=== PATIENT | male | born 1960 | race Asian ===

== ENCOUNTER 2020-11-24 23:41 | Inpatient (IN) | payer MEDICAID ==
[~2020-11-24] VITALS: Ht 167.6 cm; Wt 68.0 kg
[2020-11-25] VITALS (41 sets, daily range): BP systolic 89–142; BP diastolic 55–116
--- NOTE | 2020-11-25 | Emergency Room Report ---
History of Present Illness General Chief Complaint: Chest Pain Source: Patient Present Illness HPI This is a 60-year-old male who is Icelandic speaking. He has history of irregular heartbeat. He said that he supposed to get some type of procedure done at [facility] but was told that they need to get his heart better. He does not know what medication he is supposed to be on. He does not know if he is on blood thinner. He ran out of medication 3 days ago. He presents with chief complaint of shortness of breath and palpitation. He has been having these symptoms for 2 months now. Got worse tonight. Came on suddenly. He complained of fast heartbeat with chest pressure and shortness of breath. Onset for 1-2 days. No exertional component. No fever or chills. Negative Covid testing at [facility] 3 weeks ago. No radiation of his chest pain. Nothing made it better. Nothing made it worse. Allergies: Coded Allergies: No Known Allergies (Unverified , 11/24/20) COVID-19 Screening Contact w/high risk pt: No Experienced COVID-19 symptoms?: Yes COVID-19 Testing performed GREASER HELPER: No COVID-19 Screening: Negative COVID-19 COVID-19 Testing Source: Outside [facility] 3 weeks ago Patient History Past Medical History: see triage record, old chart reviewed Past Surgical History: none Pertinent Family History: none Social History: Denies: smoking Immunizations: other Reviewed Nursing Documentation: PMH: Agreed; PSxH: Agreed Nursing Documentation-PMH Hx Cardiac Problems: Yes Hx Hypertension: Yes Review of Systems Eye: Denies: eye pain, blurred vision ENT: Denies: ear pain, nose congestion, throat swelling Respiratory: Reports: shortness of breath; Denies: cough Cardiovascular: Reports: chest pain, palpitations Gastrointestinal: Denies: abdominal pain, diarrhea, nausea, vomiting Musculoskeletal: Denies: back pain, joint pain Skin: Denies: rash Neurological: Denies: headache, numbness Endocrine: Denies: increased thirst, increased urine Hematologic/Lymphatic: Denies: easy bruising All Other Systems: negative except mentioned in HPI Physical Exam Vital Signs Date Time Temp Pulse Resp B/P (MAP) Pulse Ox O2 Delivery O2 Flow Rate FiO2 11/24/20 23:35 97.9 140 22 142/100 (114) 98 Room Air Vitals with tachycardia Sp02 EP Interpretation: reviewed, normal General Appearance: well appearing, no apparent distress, alert Head: normocephalic, atraumatic Eyes: bilateral eye PERRL, bilateral eye EOMI ENT: hearing grossly normal, normal pharynx Neck: full range of motion, supple, no meningismus Respiratory: chest non-tender, lungs clear, normal breath sounds Cardiovascular #1: regular rate, rhythm, no murmur Gastrointestinal: normal bowel sounds, non tender, no mass, no organomegaly, no bruit, non-distended Musculoskeletal: back normal, normal range of motion, gait/station normal Psychiatric: mood/affect normal Procedures Critical Care Time Critical Care Time Critical care is mandated in this patient who presented with rapid A. fib and NSTEMI. Patient require my urgent intervention to attenuate the risks of metabolic collapse which may lead to cardiovascular collapse and . Critical care time is 35 minutes excluding any reportable procedure. Critical care time included evaluation, multiple reevaluation, looking at old charts, interpreting laboratory and diagnostic data, discussing case with patient and family and consultants, and charting. Medical Decision Making Diagnostic Impression: Primary Impression: Rapid atrial fibrillation Additional Impressions: NSTEMI, initial episode of care Acute exacerbation of CHF (congestive heart failure) Qualified Codes: I50.9 - Heart failure, unspecified Renal insufficiency ER Course This patient presents with shortness of breath and chest pain/chest pressure. He was in rapid A. fib and chest x-ray show CHF. His troponin is also elevated. His EKG showed no evidence of STEMI. He was admitted to [facility] in September for the same thing. Has troponin was elevated then also. It was 0.77. Chest x-ray showed CHF. Patient was diuresed and rate control and was discharged home with prescription for Plavix, Eliquis and aspirin. It does not appear that patient is taking his medication. He never had follow-up. He is supposed to get outpatient angiogram. Patient received Cardizem boluses here for rate control. He also received aspirin and Lovenox here. I contacted Dr. Nation for admission. EKG Diagnostic Results Troponin ordered: Yes Rate: tachycardiac Rhythm: other - afib with rvr Rhythm Strip Diag. Results EP Interpretation: yes Rate: 100 Rhythm: no PVC's, no ectopy, other - A. fib Chest X-Ray Diagnostic Results Chest X-Ray Diagnostic Results : Chest X-Ray Ordered: Yes # of Views/Limited/Complete: 1 View Indication: Chest Pain EP Interpretation: Yes Interpretation: no consolidation, no pneumothorax, other - Cardiomegaly with vascular congestion Impression: Other - CM with chf Electronically Signed by: Marek Alonzo MD Last Vital Signs Date Time Temp Pulse Resp B/P (MAP) Pulse Ox O2 Delivery O2 Flow Rate FiO2 11/24/20 23:35 97.9 140 22 142/100 (114) 98 Room Air Status: improved Disposition: ADMITTED INPATIENT Condition: Serious Scripts Unable to Obtain Active Prescriptions or Reported Meds Marek Alonzo MD Nov 25, 2020 00:00
--- NOTE | 2020-11-25 00:10 | NUR ---
ED Nurse Note: Pt brought in by ambulance RA 29. He is axox4, can move all 4 extremities, speaks in complete sentances. On assement he is tachypenic. he is also in rapid afib HR of 160's. Pt is pale and co of chest pain and general body aches, ekg at bedside, 2nd IV line placed, ER MD at bedside. Per pt he was sitting at home and suddenly felt like he had a fever and body pains. he is currently resting eyes closed, vitals are stable on RA>
[2020-11-25] MEDS ORDERED: dilTIAZem HCl 25mg/5ml Inj IVP ONE ×2 (00:15)
--- NOTE | 2020-11-25 00:15 | NUR ---
Spoke to Job RN at [facility] to fax over medical records
[2020-11-25 00:24] LABS: BASOPHILS % (AUTO) 3.1 % (0.0-2.0); EOSINOPHILS % (AUTO) 0.8 % (0.0-3.0); HEMATOCRIT 47.4 % (42.0-52.0); HEMOGLOBIN 15.6 G/DL (14.2-18.0); LYMPHOCYTES % (AUTO) 19.9 % (20.0-45.0); MEAN CORPUSCULAR VOLUME 98 FL (80-99); MONOCYTES % (AUTO) 14.3 % (1.0-10.0); NEUTROPHILS % (AUTO) 61.9 % (45.0-75.0); PLATELET COUNT 209 K/UL (150-450); RED BLOOD COUNT 4.85 M/UL (4.70-6.10); RED CELL DISTRIBUTION WIDTH 16.6 % (11.6-14.8); WHITE BLOOD COUNT 5.3 K/UL (4.8-10.8)
[2020-11-25 00:31] LABS: CALCIUM 9.9 MG/DL (8.5-10.1); CREATININE 1.6 MG/DL (0.55-1.30); POTASSIUM 4.5 MMOL/L (3.5-5.1)
[2020-11-25 00:33] LABS: INR 1.3 (0.9-1.1)
[2020-11-25] MEDS ORDERED: Acetaminophen 500mg (ES) tab ORAL ONE ×2 (00:33→00:45)
[2020-11-25 00:42] LABS: ALBUMIN 3.8 G/DL (3.4-5.0); ALBUMIN/GLOBULIN RATIO 1.1 (1.0-2.7); BILIRUBIN,TOTAL 2.2 MG/DL (0.2-1.0)
[2020-11-25 00:45] LABS: BILIRUBIN,DIRECT 0.8 MG/DL (0.0-0.3)
[2020-11-25] MEDS ORDERED: Enoxaparin 80mg Inj SUBQ ONE (01:00)
[2020-11-25] MEDS ORDERED: Aspirin Baby 81mg ORAL ONE (01:00)
[2020-11-25] MEDS ORDERED: Atenolol 25mg tab ORAL ONE (01:15)
[2020-11-25 01:21] LABS: APPEARANCE,URINE CLEAR; BILIRUBIN, URINE NEGATIVE (NEGATIVE); GLUCOSE, URINE (UA) NEGATIVE (NEGATIVE); KETONES,URINE NEGATIVE (NEGATIVE); LEUKOCYTE ESTERASE ,URINE NEGATIVE (NEGATIVE); NITRITE,URINE NEGATIVE (NEGATIVE); PH,URINE 5 (4.5-8.0); PROTEIN,URINE 2+ (NEGATIVE); UROBILINOGEN,URINE NORMAL MG/DL (0.0-1.0)
[2020-11-25 01:24] LABS: COLOR,URINE YELLOW
--- NOTE | 2020-11-25 01:56 | NUR ---
ED Nurse Note: pt is resting with eyes closed, pt states he feels like he can breathe well SPO2 99%. Placed on low flow for comfort.
--- NOTE | 2020-11-25 02:02 | NUR ---
ED Nurse Note: Report given to Loree HERNÁNDEZ on tele -
--- NOTE | 2020-11-25 02:20 | NUR ---
TRANSFER TO FLOOR: Patient transferred to as ordered, per ER MD. Report given to Loree HERNÁNDEZ 202-2. Belongings sent with pt. Pt placed on tele monitor. RN and zoning technician transfered to the floor with the pt.
--- NOTE | 2020-11-25 02:55 | NUR ---
NURSE NOTES: Received patient from 2ED personnel. On 3L oxygen per nasal cannula. Noted to be tachypneic and unable to lay flat on the bed. Had one episode of dark emesis upon arrival at the unit. 2 IV sites noted. Patient is ambulatory, but unsteady. Needs staff member assist and supervision. Reminded patient to just use the urinal for now to decrease oxygen demand. Currently, sitting up at the edge of the bed. Called and left a message with primary MD for admission orders. Awaiting call back.
--- NOTE | 2020-11-25 03:26 | NUR ---
NURSE NOTES: Called and left a message with both Dr. Nation and Dr. Roth for admission orders. Awaiting call back. Patient seen sitting at the edge of the bed, unable to lay flat. Already on 3l oxygen per nasal cannula, still with shortness of breath and tachypneic.
--- NOTE | 2020-11-25 03:30 | NUR ---
NURSE NOTES: Called nursing costuming supervisor regarding admission orders.
[2020-11-25] MEDS ORDERED: Nitroglycerin Subl 0.4mg tab SL PRN (03:45)
--- NOTE | 2020-11-25 04:07 | NUR ---
NURSE NOTES: Received order to transfer patient to ICU per Ira. Informed nursing powdered sugar supervisor. Awaiting bed.
[2020-11-25] MEDS ORDERED: Metoprolol Tartrate 5mg/5ml Inj IVP SCH ×2 (04:15→05:15)
[2020-11-25] MEDS ORDERED: Nitroglycerin 50mg/250ml btl 250 ML IV ONE (04:38)
--- NOTE | 2020-11-25 04:40 | NUR ---
NURSE NOTES: received from telemetry with severe chest pain substernal, scale of 10, cold to touch, initial temp 92.7F, joanie hugger put on, manager cardiac cath shows controlled afib with hr 90's/min, bp 142/116, on simple mask 8L with o2 sat 100%,has peripheral iv line to left hand and left ac, sites good, asymptomatic
--- NOTE | 2020-11-25 05:00 | NUR ---
NURSE NOTES: nitroglycerin drip at 5mcg/min bp 117/55, lasix 40 mg ivp and metoprolol 5 mg ivp not administerd at this time, given in re and 2east
--- NOTE | 2020-11-25 05:12 | NUR ---
TRANSFER TO FLOOR: Patient transferred to [facility], per Dr. Roth. Belongings and report given to BETTY Hamilton. Endorsed administration of metoprolol IV prior to transfer.
--- NOTE | 2020-11-25 05:15 | NUR ---
NURSE NOTES: still complaining of severe chest pain, ntg drip increased to 10mcg/min
--- NOTE | 2020-11-25 05:30 | NUR ---
NURSE NOTES: stated feeling better now and more calm as well
[2020-11-25] MEDS: Nitroglycerin 50mg/250ml btl 250 ML IV SCH (05:38)
--- NOTE | 2020-11-25 06:30 | NUR ---
NURSE NOTES: o2 changed from simple mask to nasal cannula at 3l, o2 sat remains 99-100%
--- NOTE | 2020-11-25 06:39 | NUR ---
NURSE NOTES: dr jimenez made aware of last troponin of 1.113 and also notified him that the lasix 40mg and metoprolol 5mg ivp that he ordered at 0500 not given because they were given in other unit
--- NOTE | 2020-11-25 07:27 | NUR ---
NURSE HAND-OFF REPORT: Latest Vital Signs: Temperature 94.0 , Pulse 73 , B/P 97 /75 , Respiratory Rate 30 , O2 SAT 100 , Nasal Cannula, O2 Flow Rate 8.0 . Vital Sign Comment: EKG Rhythm: Atrial Fibrillation Rhythm change?: N MD Notified?: dr jimenez for 1. MD Response: no new order Latest Crews Fall Score: 45 Fall Risk: High Risk Safety Measures: Call light Within Reach, Bed Alarm Zone 1, Side Rails Side Rails x2, Bed position Low and Locked. Fall Precautions: Yellow Socks Yellow Gown Door Sign Patient Fall Education Report given to alyson nunez rn.
--- NOTE | 2020-11-25 07:28 | NUR ---
NURSE NOTES: Report received from BETTY Hamilton. Patient is sleeping in bed. Mainly Romansh speaking. Oriented x4. Afebrile. 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 Patient complaints of mild pain radiating to back and mild dizziness. Will continue to monitor. On N/C 3L. O2 sat is 100%. RR 20's. Tachy shallow breathing noted. Urinal at bedside. Pitting edema +1 on bilateral lower extremities and feet noted. IV to left hand G22 and left AC G20 patent and asymptomatic. Patient is on Nitro drip at 10mcg/min. Bed in lowest position. Side rails up x3. Will resume plan of care.
--- NOTE | 2020-11-25 07:39 | NUR ---
CASE MANAGEMENT:REVIEW 60 YR OLD MALE BIBA FROM HOME CC: INCREASING SOB, CHEST PAIN AND BODY ACHES SI: NSTEMI. RAPID AFIB. AC/CHR CHF 97.8 165 22 142/100 98% ON RA BUN+20 CR+1.6 TROPONIN(+) 1.100 IS: IV CARDIZEM X2 IV LASIX ASA PO TYLENOL PO LOVENOX SQ NOVEL COVID CXR EKG : TO ICU DCP: FROM HOME PLAN: NITRO GTT VENOUS DUPLEX 2DECHO
--- NOTE | 2020-11-25 08:20 | NUR ---
NURSE NOTES: 2Decho is being done at bedside.
[2020-11-25] MEDS ORDERED: Eliquis 5mg tablet ORAL SCH (09:00)
[2020-11-25] MEDS ORDERED: Heparin 5000 units/ml inj SUBQ SCH (09:00)
[2020-11-25] MEDS: Aspirin Baby 81mg NG SCH (09:03)
--- NOTE | 2020-11-25 09:24 | NUR ---
NURSE NOTES: Venous duplex is being done at bedside. Patient vomited small amount brown emesis. Called and left a message to Dr Nation regarding vomiting. Awaiting call back for new orders.
[2020-11-25] MEDS: Eliquis 2.5mg tablet ORAL SCH ×2 (10:40→20:18)
--- NOTE | 2020-11-25 11:06 | NUR ---
NURSE NOTES: Administered Edulis late because patient vomited earlier. Dr Roth was here to see the patient. Order to give extra 20mg IVP received, noted, and carried out.
--- NOTE | 2020-11-25 13:07 | NUR ---
NURSE NOTES: Assisted patient to stand up and void into urinal at bedside. Voided 400cc yellow urine. Assisted patient back to bed.
--- NOTE | 2020-11-25 13:30 | Diagnostic Imaging Report ---
Indication: Shortness of breath, chest pain, lower extremity edema Technique: Grayscale and duplex images of the bilateral lower extremity veins Comparison: None Findings: Bilaterally, grayscale and duplex images demonstrate no evidence of intraluminal thrombus. Normal phasic Doppler waveforms, demonstrating normal augmentation response and no evidence of valvular insufficiency. Greater saphenous vein(s) and tibial veins are patent. Normal compressibility. Impression: Negative for evidence of lower extremity deep venous thrombosis bilaterally
[2020-11-25 13:33] LABS: ALANINE AMINOTRANSFERASE 91 U/L (12-78); ALBUMIN 3.2 G/DL (3.4-5.0); ALBUMIN/GLOBULIN RATIO 1.1 (1.0-2.7); ALKALINE PHOSPHATASE 74 U/L (46-116); ASPARTATE AMINO TRANSFERASE 129 U/L (15-37); BILIRUBIN,TOTAL 2.3 MG/DL (0.2-1.0); BLOOD UREA NITROGEN 26 mg/dL (7-18); CALCIUM 8.9 MG/DL (8.5-10.1); CARBON DIOXIDE 22 MMOL/L (21-32); CHOLESTEROL 124 MG/DL (< 200); CREATININE 1.8 MG/DL (0.55-1.30); HDL CHOLESTEROL 33 MG/DL (40-60); TRIGLYCERIDES 57 MG/DL (30-150)
[2020-11-25 14:08] LABS: CHLORIDE 105 MMOL/L (98-107); POTASSIUM 5.2 MMOL/L (3.5-5.1); SODIUM 137 MMOL/L (136-145)
[2020-11-25 14:09] LABS: BILIRUBIN,DIRECT 1.1 MG/DL (0.0-0.3)
--- NOTE | 2020-11-25 14:11 | NUR ---
CLAM SHOVEL OPERATOR NOTE SW met w/ pt and completed the psychosocial assessment. PT presents as A&O 4x. Pt resides alone at [address] [place] [id number]. Pt is and has one adult daughter. PT reports he is estranged to his family and he is not in contact w/ any family. Pt is currently unemployed, receiving unemployment benefit. 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 Pt reports he is ambulatory w/o DME and independent w/ ADLs. Pt does not have AD/POA. Pt uses tobacco and drinks ETOH, 2-3x/week. PT reports he will consider IP or OP rehab program options in near future when his health gets better. SW provided the substance abuse rehab resource. Pt does not have social worker assistant concern at this time. SW to F/U as needed.
--- NOTE | 2020-11-25 14:23 | Diagnostic Imaging Report ---
Indication: Shortness of breath Technique: One view of the chest Comparison: none Findings: The heart is enlarged. There is bilateral interstitial and airspace edema. There may be a small right pleural effusion Impression: Cardiomegaly Small right pleural effusion
--- NOTE | 2020-11-25 15:42 | NUR ---
NURSE NOTES: Notified Dr Roth regarding elevated K 5.2 and that patient urinated after additional Lasix 20mg IVP. No new orders.
--- NOTE | 2020-11-25 17:50 | NUR ---
NURSE NOTES: Patient had 60% of dinner in bed and has oral care done by himself. Patient sit up at the edge of the bed, watching TV. Fall risk education given and call light within reach. Patient denies chest pain at this time.
--- NOTE | 2020-11-25 20:00 | NUR ---
NURSE NOTES: Report received from BETTY Mercedes. Upon assessment pt is getting up to go to bedside commode. EKG shows Afib 110 BPM. Saturating 100% on 2L n/c. Left hand IV patent and intact running Nitro 10 mcg/hr. Blood observed around penis area for attempting to remove burnette. Burnette draining well to gravity. Bed kept in lowest and locked position. Bed alarm on, side rails up x2. Call light within reach. Will continue monitoring.
[2020-11-25] MEDS: Metoprolol Tartrate 50mg tab ORAL SCH (20:18)
--- NOTE | 2020-11-25 21:57 | NUR ---
NURSE NOTES: Pt appears restless and unable to sleep. When asked if he is in pain, "0/10 pain. Patient requesting sleeping pill x2. Left message for MD with request. Explained to pt that he will be NPO at midnight.
--- NOTE | 2020-11-25 23:00 | NUR ---
NURSE NOTES: Pt observed sitting on side of bed. 0/10 pain per patient. Still awaiting orders for PRN. Vitals WNL.
[2020-11-26] VITALS (31 sets, daily range): BP systolic 88–128; BP diastolic 57–101
--- NOTE | 2020-11-26 03:23 | NUR ---
NURSE NOTES: Pt appears to be resting in bed. HR has decreased to 80's. BP stable. Tachypneic at 33 RR. Will monitor.
--- NOTE | 2020-11-26 04:00 | NUR ---
NURSE NOTES: Pt refused bed bath. Reminded pt to keep Oxygen N/C on. Left message for Dr. Frazier in regards to cancelled Ab U/S and NPO status. Will monitor.
[2020-11-26] MEDS ORDERED: Nitroglycerin 2% oint pkt TOPIC ONE (04:20)
[2020-11-26 05:04] LABS: BASOPHILS % (AUTO) 1.9 % (0.0-2.0); EOSINOPHILS % (AUTO) 1.7 % (0.0-3.0); HEMATOCRIT 44.6 % (42.0-52.0); HEMOGLOBIN 14.5 G/DL (14.2-18.0); LYMPHOCYTES % (AUTO) 28.7 % (20.0-45.0); MEAN CORPUSCULAR VOLUME 98 FL (80-99); MONOCYTES % (AUTO) 11.5 % (1.0-10.0); NEUTROPHILS % (AUTO) 56.2 % (45.0-75.0); PLATELET COUNT 185 K/UL (150-450); RED BLOOD COUNT 4.55 M/UL (4.70-6.10); RED CELL DISTRIBUTION WIDTH 16.8 % (11.6-14.8); WHITE BLOOD COUNT 7.8 K/UL (4.8-10.8)
[2020-11-26 05:12] LABS: INR 1.4 (0.9-1.1)
[2020-11-26] MEDS: Nitroglycerin 2% oint pkt TOPIC SCH ×3 (05:34→17:27)
[2020-11-26] MEDS: Nitroglycerin 50mg/250ml btl 250 ML IV SCH (05:37)
[2020-11-26 05:49] LABS: ALANINE AMINOTRANSFERASE 138 U/L (12-78); ALBUMIN 3.2 G/DL (3.4-5.0); ALBUMIN/GLOBULIN RATIO 1.1 (1.0-2.7); ALKALINE PHOSPHATASE 73 U/L (46-116); AMYLASE 32 U/L (25-115); ANION GAP 12 mmol/L (5-15); ASPARTATE AMINO TRANSFERASE 171 U/L (15-37); BILIRUBIN,TOTAL 1.6 MG/DL (0.2-1.0); BLOOD UREA NITROGEN 30 mg/dL (7-18); CALCIUM 9.4 MG/DL (8.5-10.1); CARBON DIOXIDE 20 MMOL/L (21-32); CHLORIDE 104 MMOL/L (98-107); CREATININE 1.9 MG/DL (0.55-1.30); POTASSIUM 4.6 MMOL/L (3.5-5.1); SODIUM 136 MMOL/L (136-145)
[2020-11-26 05:51] LABS: BILIRUBIN,DIRECT 0.8 MG/DL (0.0-0.3)
--- NOTE | 2020-11-26 07:12 | NUR ---
NURSE HAND-OFF REPORT: Important Events on Shift: Ab U/S Patient Status: Afib Diet: NPO Pending Orders: Y Pending Results/Labs:Y Pending MD notification: Latest Vital Signs: Temperature 97.8 , Pulse 109 , B/P 108 /68 , Respiratory Rate 20 , O2 SAT 98 , Nasal Cannula, O2 Flow Rate 3.0 . Vital Sign Comment: EKG Rhythm: Atrial Fibrillation Rhythm change?: N MD Notified?: - MD Response: Latest Crews Fall Score: 45 Fall Risk: High Risk Safety Measures: Call light Within Reach, Bed Alarm Zone 1, Side Rails Side Rails x3, Bed position Low and Locked. Fall Precautions: Yellow Socks Yellow Gown Report given to BETTY Lindsey.
--- NOTE | 2020-11-26 07:13 | NUR ---
NURSE NOTES: Patient recieved this AM from BETTY Menon. He is AOx4, resp well on RA (NC observed off of patient's nose), no ss of anxiety, denies pain at start of shift. Patient is AFIB on tele, urinal and BSC at bedside, he has been NPO since [facility] for US ABD this shift. VSS, afebrile. IV site to the RAC has NTG infusing at 10 mcg/min. Edema to the BLE improved, no longer pitting, observed to be slightly tight. Patient is Faroese-speaking, PUI for COVID isolation. Call light and bedside table within reach, bed in the lowest position, with bed alarm armed. Will con't with the plan of care.
--- NOTE | 2020-11-26 09:09 | NUR ---
NURSE NOTES: Notified Dr Roth regarding elevated Troponin result. No new orders for now.
--- NOTE | 2020-11-26 09:50 | NUR ---
NURSE NOTES: Dr. Frazier at bedside for morning rounds, patient assessed at bedside. Patient had c/o abdominal pain upon palpation of the LUQ; US tech en route to unit for US ABD. Will con't to monitor.
--- NOTE | 2020-11-26 10:15 | NUR ---
NURSE NOTES: Jess Atkins at bedside performing examination. Morning meds to be administered post-exam.
[2020-11-26] MEDS: Aspirin Baby 81mg NG SCH (11:14)
[2020-11-26] MEDS: Eliquis 2.5mg tablet ORAL SCH ×2 (11:15→21:02)
[2020-11-26] MEDS: Metoprolol Tartrate 50mg tab ORAL SCH ×2 (11:16→21:00)
--- NOTE | 2020-11-26 11:26 | Diagnostic Imaging Report ---
EXAM: ULTRASOUND US ABD Complete CLINICAL HISTORY: Abdominal pain. Abnormal labs. COMPARISON: None TECHNIQUE: Ultrasound examination of the abdomen includes grayscale images, and color and spectral doppler analysis. FINDINGS: The liver and spleen are homogeneous. The gallbladder is without sludge or stone. Common bile duct measures 5 mm. The pancreas is unremarkable to the extent visualized. The kidneys are normal in size, shape and axis. The mid to distal aorta and cava are obscured. Incidental bilateral pleural effusions noted. IMPRESSION: NO SIGN OF ACUTE DISEASE IN THE UPPER ABDOMEN TO THE EXTENT VISUALIZED. INCIDENTAL BILATERAL PLEURAL EFFUSIONS.
[2020-11-26] MEDS ORDERED: Lisinopril 10mg tab ORAL SCH (12:00)
--- NOTE | 2020-11-26 12:00 | NUR ---
NURSE NOTES: Dr Roth here to see the patient. Updated him regarding patient's current condition. Will see orders in [facility] and carry out. Will resume diet as ordered since abdominal US is done.
--- NOTE | 2020-11-26 12:07 | NUR ---
CASE MANAGEMENT:REVIEW 11/26/20 SI: NSTEMI. RAPID AFIB. AC/CHR CHF 97.8 107 21 92/69 96% ON 3L/NC BUN+30 CR+1.9 TROPONIN(+) 0.951 BNP+5251 IS: LISINOPRIL PO QD NITRO BID 1" TID LOPRESSOR PO BID ELIQUIS PO Q12 PEPCID PO QD ASA PO QD : ICU STATUS DCP: FROM HOME PLAN: DOWNGRADE TO TELEMETRY
--- NOTE | 2020-11-26 14:43 | NUR ---
NURSE NOTES: Dr Elder is aware of abd US result. Patient is voiding independently to urinal. Patient is resting in bed. Denies pain or discomfort at this time.
--- NOTE | 2020-11-26 14:45 | Consultation ---
Consult Note Consult Note I am asked to evaluate the patient at the request of Dr. Roth for renal failure Patient seen in ICU room J Discussed with RN Wicho This is a 60-year-old male who is Latvian speaking. He has history of irregular heartbeat. He said that he supposed to get some type of procedure done at [facility] but was told that they need to get his heart better. He does not know what medication he is supposed to be on. He does not know if he is on blood thinner. He ran out of medication 3 days ago. He presents with chief complaint of shortness of breath and palpitation. He has been having these symptoms for 2 months now. Got worse tonight. Came on suddenly. He complained of fast heartbeat with chest pressure and shortness of breath. Onset for 1-2 days. No exertional component. No fever or chills. Negative Covid testing at [facility] 3 weeks ago. No radiation of his chest pain. Nothing made it better. Nothing made it worse. Allergies: No Known Allergies (Unverified , 11/24/20) COVID-19 Screening Contact w/high risk pt: No Experienced COVID-19 symptoms?: Yes COVID-19 Testing performed PATIENT CARE: No COVID-19 Screening: Negative COVID-19 COVID-19 Testing Source: Outside [facility] 3 weeks ago Hx Cardiac Problems: Yes Hx Hypertension: Yes Vital Signs Date Time Temp Pulse Resp B/P (MAP) Pulse Ox O2 Delivery O2 Flow Rate FiO2 11/24/20 23:35 97.9 140 22 142/100 (114) 98 Room Air Vitals with tachycardia Chest x-ray the heart is enlarged. There is bilateral interstitial and airspace edema. There may be a small right pleural effusion Ultrasound:The kidneys are normal in size, shape and axis. HEENT: normal ENT inspection RHYTHM: Afib LUNGS: rales bilaterally CARDIAC: irregularly irregular, systolic murmur - 2/6 holosystolic at apex, rapid rate ABDOMEN: normal bowel sounds, non tender, soft EXTREMITIES: trace edema, pitting edema Laboratory Tests Test 11/26/20 04:00 White Blood Count 7.8 K/UL (4.8-10.8) Red Blood Count 4.55 M/UL (4.70-6.10) L Hemoglobin 14.5 G/DL (14.2-18.0) Hematocrit 44.6 % (42.0-52.0) Mean Corpuscular Volume 98 FL (80-99) Mean Corpuscular Hemoglobin 31.7 PG (27.0-31.0) H Mean Corpuscular Hemoglobin Concent 32.4 G/DL (32.0-36.0) Red Cell Distribution Width 16.8 % (11.6-14.8) H Platelet Count 185 K/UL (150-450) Mean Platelet Volume 9.1 FL (6.5-10.1) Neutrophils (%) (Auto) 56.2 % (45.0-75.0) Lymphocytes (%) (Auto) 28.7 % (20.0-45.0) Monocytes (%) (Auto) 11.5 % (1.0-10.0) H Eosinophils (%) (Auto) 1.7 % (0.0-3.0) Basophils (%) (Auto) 1.9 % (0.0-2.0) Prothrombin Time 15.4 SEC (9.30-11.50) H Prothromb Time International Ratio 1.4 (0.9-1.1) H Activated Partial Thromboplast Time 32 SEC (23-33) Sodium Level 136 MMOL/L (136-145) Potassium Level 4.6 MMOL/L (3.5-5.1) Chloride Level 104 MMOL/L (98-107) Carbon Dioxide Level 20 MMOL/L (21-32) L Anion Gap 12 mmol/L (5-15) Blood Urea Nitrogen 30 mg/dL (7-18) H Creatinine 1.9 MG/DL (0.55-1.30) H Estimat Glomerular Filtration Rate 36.3 mL/min (>60) Glucose Level 104 MG/DL (74-106) Calcium Level 9.4 MG/DL (8.5-10.1) Total Bilirubin 1.6 MG/DL (0.2-1.0) H Direct Bilirubin 0.8 MG/DL (0.0-0.3) H Aspartate Amino Transf (AST/SGOT) 171 U/L (15-37) H Alanine Aminotransferase (ALT/SGPT) 138 U/L (12-78) H Alkaline Phosphatase 73 U/L (46-116) Troponin I 0.951 ng/mL (0.000-0.056) C-Reactive Protein, Quantitative < 0.4 mg/dL (0.00-0.90) Pro-B-Type Natriuretic Peptide 5251 pg/mL (0-125) H Total Protein 6.1 G/DL (6.4-8.2) L Albumin 3.2 G/DL (3.4-5.0) L Globulin 2.9 g/dL Albumin/Globulin Ratio 1.1 (1.0-2.7) Amylase Level 32 U/L (25-115) Lipase 103 U/L (73-393) . . Assessment/Plan 60-year-old Latvian male admitted with creatinine of 1.6 today is 1.9 Has acute renal failure most likely with underlying chronic kidney disease On admission had rapid atrial fibrillation Elevated troponin, non-STEMI Exacerbation of CHF, ejection fraction 40% (cardiomyopathy) Proteinuria 2+ Elevated LFTs Continue monitor renal parameters Medication reviewed Stool softener given 1 dose of IV Lasix Flomax at night Continue to monitor renal parameters Jose Iglesias MD Nov 26, 2020 14:44
--- NOTE | 2020-11-26 15:01 | Consultation ---
History of Present Illness General Date patient seen: Nov 26, 2020 Reason for Hospitalization: Chest Pain Present Illness HPI Is a 60-year-old male admitted to [facility] intensive care unit for irregular heartbeat complaining of chest pain and abdominal pain noted to have abnormal LFTs. Patient seen, patient by, chart reviewed. Patient states generalized abdominal discomfort and on palpation feels discomfort around the epigastric right upper quadrant. T bili elevated LFTs elevated. Tolerating diet. No nausea vomiting. Allergies: Coded Allergies: No Known Allergies (Unverified , 11/24/20) COVID-19 Screening Contact w/high risk pt: No Experienced COVID-19 symptoms?: Yes Coronavirus symptoms experienc: Shortness of Breath Medication History Unable to Obtain Active Prescriptions or Reported Meds Patient History History Provided By: Patient, Medical Record, PMD Healthcare decision maker Resuscitation status Advanced Directive on File Past Medical/Surgical History Past Medical/Surgical History: (1) Renal insufficiency (2) Acute exacerbation of CHF (congestive heart failure) (3) Rapid atrial fibrillation (4) NSTEMI, initial episode of care Review of Systems Review of Symptoms General ROS: no weight loss or fever Psychological ROS: no depression or mood changes, no memory loss Ophthalmic ROS: no visual changes or eye irritation ENT ROS: no nasal congestion, hearing loss, dizziness Allergy and Immunology ROS: no allergic symptoms or urticaria Hematological and Lymphatic ROS: no swollen glands, unusual bleeding or bruising Endocrine ROS: no polyuria, polydipsia, weight changes, temperature intolerance Respiratory ROS: no cough, shortness of breath, or wheezing Cardiovascular ROS: + chest pain or dyspnea on exertion Gastrointestinal ROS: + abdominal pain, bright red blood in stool. Musculoskeletal ROS: no myalgias or arthralgias Neurological ROS: no TIA or stroke symptoms Dermatological ROS: no new or changing skin lesions, rashes or pruritis Physical Exam Physical Exam General appearance: alert, cooperative, no distress, appears stated age Head: Normocephalic, without obvious abnormality, atraumatic Eyes: conjunctivae/corneas clear. PERRL, EOM's intact. Fundi benign Throat: Lips, mucosa, and tongue normal. Teeth and gums normal Neck: supple, symmetrical, trachea midline, no adenopathy, thyroid: not enlarged, symmetric, no tenderness/mass/nodules, no carotid bruit and no JVD Lungs: clear to auscultation bilaterally Heart: regular rate and rhythm, S1, S2 normal, no murmur, click, rub or gallop Abdomen: soft, non-tender but discomfort. Bowel sounds normal. No masses, no organomegaly Extremities: extremities normal, atraumatic, no cyanosis or edema Pulses: 2+ and symmetric Skin: Skin color, texture, turgor normal. No rashes or lesions Neurologic: Grossly normal Last 24 Hour Vital Signs Date Time Temp Pulse Resp B/P (MAP) Pulse Ox O2 Delivery O2 Flow Rate FiO2 11/26/20 14:00 113 31 111/80 (90) 96 11/26/20 13:00 128 22 97 11/26/20 12:45 121/97 11/26/20 12:45 121/97 11/26/20 12:45 112 33 121/97 (105) 98 11/26/20 12:30 112 29 121/97 (105) 99 11/26/20 12:15 114 26 125/86 (99) 99 11/26/20 12:00 117 11/26/20 12:00 97.9 105 20 125/86 (99) 100 11/26/20 12:00 Nasal Cannula 3.0 11/26/20 11:30 122 28 112/93 (99) 100 11/26/20 11:16 101 109/88 11/26/20 11:00 111 29 109/88 (95) 100 11/26/20 10:30 104 19 118/74 (89) 99 11/26/20 10:00 107 22 125/101 (109) 99 11/26/20 09:30 113 21 105/86 (92) 99 11/26/20 09:00 102 17 88/67 (74) 97 11/26/20 08:30 96 18 95/57 (70) 93 11/26/20 08:00 97.9 106 21 92/69 (77) 96 11/26/20 08:00 107 11/26/20 08:00 Nasal Cannula 3.0 11/26/20 07:30 106 20 93/70 (78) 98 11/26/20 07:00 109 20 108/68 (81) 98 11/26/20 07:00 109 20 108/68 (81) 98 11/26/20 06:30 112 25 118/87 (97) 100 11/26/20 06:00 110 21 126/100 (109) 98 11/26/20 05:37 106/89 11/26/20 05:34 106/89 11/26/20 05:30 112 28 106/89 (95) 100 11/26/20 05:00 109 19 114/88 (97) 99 11/26/20 04:30 110 26 107/81 (90) 97 11/26/20 04:00 108 11/26/20 04:00 118 26 113/83 (93) 100 11/26/20 04:00 Nasal Cannula 3.0 11/26/20 03:30 99 20 111/75 (87) 95 11/26/20 03:00 110 32 110/74 (86) 97 11/26/20 02:30 97 17 122/79 (93) 100 11/26/20 02:00 112 23 119/85 (96) 99 11/26/20 01:30 111 30 115/93 (100) 99 11/26/20 01:00 117 20 101/76 (84) 99 11/26/20 00:30 104 20 115/89 (98) 99 11/26/20 00:00 110 11/26/20 00:00 97.8 110 23 109/78 (88) 100 11/26/20 00:00 Nasal Cannula 3.0 11/25/20 23:30 108 21 112/79 (90) 100 11/25/20 23:00 107 25 111/79 (90) 91 11/25/20 22:30 110 18 111/80 (90) 100 11/25/20 22:00 115 32 112/76 (88) 97 11/25/20 21:00 102 26 123/93 (103) 99 11/25/20 21:00 102 11/25/20 20:18 98 109/87 11/25/20 20:00 97.1 107 25 109/87 (94) 98 11/25/20 20:00 Nasal Cannula 3.0 11/25/20 19:00 109 25 99/72 (81) 95 11/25/20 18:30 100 24 104/71 (82) 99 11/25/20 18:00 114 26 108/74 (85) 97 11/25/20 17:30 115 23 113/93 (100) 98 11/25/20 17:00 106 27 99/72 (81) 100 11/25/20 16:30 110 28 106/74 (85) 98 11/25/20 16:00 97.9 102 25 104/77 (86) 96 11/25/20 16:00 Nasal Cannula 3.0 11/25/20 15:30 97 23 103/74 (84) 95 11/25/20 15:25 100 11/25/20 15:00 97 25 117/73 (88) 94 Intake and Output 11/25/20 11/26/20 19:00 07:00 Intake Total 646 ml 180 ml Output Total 610 ml 350 ml Balance 36 ml -170 ml Intake Oral 610 ml 150 ml IV Total 36 ml 30 ml Output Urine Total 580 ml 350 ml Emesis 30 ml # Voids 3 # Bowel Movements 4 Laboratory Tests Test 11/26/20 04:00 White Blood Count 7.8 K/UL (4.8-10.8) Red Blood Count 4.55 M/UL (4.70-6.10) L Hemoglobin 14.5 G/DL (14.2-18.0) Hematocrit 44.6 % (42.0-52.0) Mean Corpuscular Volume 98 FL (80-99) Mean Corpuscular Hemoglobin 31.7 PG (27.0-31.0) H Mean Corpuscular Hemoglobin Concent 32.4 G/DL (32.0-36.0) Red Cell Distribution Width 16.8 % (11.6-14.8) H Platelet Count 185 K/UL (150-450) Mean Platelet Volume 9.1 FL (6.5-10.1) Neutrophils (%) (Auto) 56.2 % (45.0-75.0) Lymphocytes (%) (Auto) 28.7 % (20.0-45.0) Monocytes (%) (Auto) 11.5 % (1.0-10.0) H Eosinophils (%) (Auto) 1.7 % (0.0-3.0) Basophils (%) (Auto) 1.9 % (0.0-2.0) Prothrombin Time 15.4 SEC (9.30-11.50) H Prothromb Time International Ratio 1.4 (0.9-1.1) H Activated Partial Thromboplast Time 32 SEC (23-33) Sodium Level 136 MMOL/L (136-145) Potassium Level 4.6 MMOL/L (3.5-5.1) Chloride Level 104 MMOL/L (98-107) Carbon Dioxide Level 20 MMOL/L (21-32) L Anion Gap 12 mmol/L (5-15) Blood Urea Nitrogen 30 mg/dL (7-18) H Creatinine 1.9 MG/DL (0.55-1.30) H Estimat Glomerular Filtration Rate 36.3 mL/min (>60) Glucose Level 104 MG/DL (74-106) Calcium Level 9.4 MG/DL (8.5-10.1) Total Bilirubin 1.6 MG/DL (0.2-1.0) H Direct Bilirubin 0.8 MG/DL (0.0-0.3) H Aspartate Amino Transf (AST/SGOT) 171 U/L (15-37) H Alanine Aminotransferase (ALT/SGPT) 138 U/L (12-78) H Alkaline Phosphatase 73 U/L (46-116) Troponin I 0.951 ng/mL (0.000-0.056) C-Reactive Protein, Quantitative < 0.4 mg/dL (0.00-0.90) Pro-B-Type Natriuretic Peptide 5251 pg/mL (0-125) H Total Protein 6.1 G/DL (6.4-8.2) L Albumin 3.2 G/DL (3.4-5.0) L Globulin 2.9 g/dL Albumin/Globulin Ratio 1.1 (1.0-2.7) Amylase Level 32 U/L (25-115) Lipase 103 U/L (73-393) Height (Feet): 5 Height (Inches): 6.00 Weight (Pounds): 150 Medications Current Medications Medications (Trade) Dose Ordered Sig/Melva Route PRN Reason Start Time Stop Time Status Last Admin Dose Admin Apixaban (Eliquis) 5 mg EVERY 12 HOURS ORAL 11/25/20 09:13 02/23/21 08:59 11/26/20 11:15 Aspirin (ASA) 81 mg DAILY NG 11/25/20 09:00 01/09/21 08:59 11/26/20 11:14 Docusate Sodium (Colace) 100 mg THREE TIMES A DAY ORAL 11/26/20 18:00 12/26/20 17:59 Famotidine (Pepcid) 20 mg DAILY ORAL 11/25/20 09:00 02/23/21 08:59 11/26/20 11:14 Furosemide (Lasix) 20 mg ONCE IV 11/26/20 15:00 11/26/20 16:00 Lisinopril (ZestriL) 10 mg DAILY ORAL 11/27/20 09:00 12/27/20 08:59 Metoprolol Tartrate (Lopressor) 50 mg BID@0900,2100 ORAL 11/25/20 21:00 02/23/21 08:59 11/26/20 11:16 Nitroglycerin (Nitro-Bid) 1 inch TID@0600,1200,1800 TOPIC 11/26/20 06:00 12/26/20 05:59 11/26/20 12:45 Nitroglycerin (Ntg) 0.4 mg Q5M PRN SL Prn Chest Pain 11/25/20 03:45 12/25/20 03:44 Ondansetron HCl (Zofran) 4 mg Q4H PRN IVP Nausea & Vomiting 11/25/20 10:15 12/25/20 10:14 Tamsulosin HCl (Flomax) 0.4 mg BEDTIME ORAL 11/26/20 21:00 12/26/20 20:59 UNV Assessment/Plan Problem List: (1) Renal insufficiency ICD Codes: N28.9 - Disorder of kidney and ureter, unspecified SNOMED: 509237698, 810721944 (2) Acute exacerbation of CHF (congestive heart failure) ICD Codes: I50.9 - Heart failure, unspecified SNOMED: 787929092, 73809705780566 Qualifiers: Qualified Codes: I50.9 - Heart failure, unspecified (3) Rapid atrial fibrillation ICD Codes: I48.91 - Unspecified atrial fibrillation SNOMED: 938805643 (4) NSTEMI, initial episode of care ICD Codes: I21.4 - Non-ST elevation (NSTEMI) myocardial infarction SNOMED: 52407721 Status Narrative 60-year-old male abdominal pain abnormal LFTs. Ultrasound reviewed sludge no paracolic fluid liver noted Abdominal pain improving since admission LFTs improving okay for diet IV fluids Cardiology input appreciated Thank you will follow recommendations and serial exams The liver and spleen are homogeneous. The gallbladder is without sludge or stone. Common bile duct measures 5 mm. The pancreas is unremarkable to the extent visualized. The kidneys are normal in size, shape and axis. The mid to distal aorta and cava are obscured. Incidental bilateral pleural effusions noted. IMPRESSION: NO SIGN OF ACUTE DISEASE IN THE UPPER ABDOMEN TO THE EXTENT VISUALIZED. INCIDENTAL BILATERAL PLEURAL EFFUSIONS. Gerson Frazier Nov 26, 2020 15:01
--- NOTE | 2020-11-26 16:00 | NUR ---
NURSE NOTES: Patient is resting in bed. Denies chest pain or discomfort at this time. Afebrile. 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
[2020-11-26] MEDS ORDERED: ASPIRIN81 MG ORAL (17:14)
[2020-11-26] MEDS ORDERED: HUMALOG100 UNIT/4 SUBQ (17:14)
[2020-11-26] MEDS ORDERED: FUROSEMIDE80 M1 ORAL (17:14)
[2020-11-26] MEDS: Docusate 100mg cap ORAL SCH (17:26)
--- NOTE | 2020-11-26 17:45 | NUR ---
TRANSFER TO FLOOR: Patient transferred to [facility], . Report given to Renny Villasenor RN. Belongings checked and with the patient and no medications to give. Patient is alert and oriented x4 at this time.
--- NOTE | 2020-11-26 17:49 | NUR ---
NURSE NOTES: Received report from Viridiana Jones RN and Alie Kohli RN. Patient awake and alert, Ukrainian speaking, understands Slovenian, bed in lowest position, call light within reach, oxygen at 2 liters nasal cannula, no c/o pain, in no apparent distress. Belongings on table next to bed.
--- NOTE | 2020-11-26 19:18 | NUR ---
NURSE HAND-OFF REPORT: Important Events on Shift: Patient transferred in to Telemetry from ICU. Patient Status: In no apparent distress. Diet: Cardiac. Pending Orders: N/A Pending Results/Labs:N/A Pending MD notification:N/A Latest Vital Signs: Temperature 97.9 , Pulse 111 , B/P 106 /54 , Respiratory Rate 42 , O2 SAT 99 , Nasal Cannula, O2 Flow Rate 3.0 . Vital Sign Comment: N/A EKG Rhythm: Atrial Fibrillation Rhythm change?: N MD Notified?: - MD Response: Latest Crews Fall Score: 45 Fall Risk: High Risk Safety Measures: Call light Within Reach, Bed Alarm Zone 1, Side Rails Side Rails x3, Bed position Low and Locked. Fall Precautions: Yellow Socks Yellow Gown Report given to Jennifer Wilkins RN.
--- NOTE | 2020-11-26 19:30 | NUR ---
NURSE NOTES: Patient received from BETTY Wilson. Patient is awake, alert and oriented x 4. Patient is trying to leave the hospital. Educated the patient regarding the importance of his hospital stay with the charge poster. Patient is on 2 L Nasal cannula with no signs of acute respiratory distress noted. Patient is able to ambulate with a steady gait. Patient has a left 20 gauge IV on his hand, saline locked. Bed is in the lowest position and locked, call light within reach. Will continue to monitor.
--- NOTE | 2020-11-26 20:00 | NUR ---
NURSE NOTES: Left a message to Dr. Nation, patient that is asking for sleeping medication. Awaiting for call back.
[2020-11-26] MEDS ORDERED: Tamsulosin 0.4mg cap ORAL SCH (21:00)
--- NOTE | 2020-11-26 23:32 | Cardiology Progress Note ---
Subjective DATE OF SERVICE: Nov 26, 2020 Less SOB. Still with some CP. AFib now better rate controlled Troponin trending down since admit Objective Last 24 Hour Vital Signs Date Time Temp Pulse Resp B/P (MAP) Pulse Ox O2 Delivery O2 Flow Rate FiO2 11/26/20 21:00 98 109/78 11/26/20 20:00 120 11/26/20 20:00 96.1 98 18 109/78 (88) 98 11/26/20 17:27 106/54 11/26/20 17:00 111 42 99 11/26/20 16:00 Nasal Cannula 3.0 11/26/20 16:00 112 25 100 11/26/20 15:40 108 11/26/20 15:00 93/74 (80) 96 11/26/20 14:00 113 31 111/80 (90) 96 11/26/20 13:00 128 22 97 11/26/20 12:45 121/97 11/26/20 12:45 121/97 11/26/20 12:45 112 33 121/97 (105) 98 11/26/20 12:30 112 29 121/97 (105) 99 11/26/20 12:15 114 26 125/86 (99) 99 11/26/20 12:00 117 11/26/20 12:00 97.9 105 20 125/86 (99) 100 11/26/20 12:00 Nasal Cannula 3.0 11/26/20 11:30 122 28 112/93 (99) 100 11/26/20 11:16 101 109/88 11/26/20 11:00 111 29 109/88 (95) 100 11/26/20 10:30 104 19 118/74 (89) 99 11/26/20 10:00 107 22 125/101 (109) 99 11/26/20 09:30 113 21 105/86 (92) 99 11/26/20 09:00 102 17 88/67 (74) 97 11/26/20 08:30 96 18 95/57 (70) 93 11/26/20 08:00 97.9 106 21 92/69 (77) 96 11/26/20 08:00 107 11/26/20 08:00 Nasal Cannula 3.0 11/26/20 07:30 106 20 93/70 (78) 98 11/26/20 07:00 109 20 108/68 (81) 98 11/26/20 07:00 109 20 108/68 (81) 98 11/26/20 06:30 112 25 118/87 (97) 100 11/26/20 06:00 110 21 126/100 (109) 98 11/26/20 05:37 106/89 11/26/20 05:34 106/89 11/26/20 05:30 112 28 106/89 (95) 100 11/26/20 05:00 109 19 114/88 (97) 99 11/26/20 04:30 110 26 107/81 (90) 97 11/26/20 04:00 108 11/26/20 04:00 118 26 113/83 (93) 100 11/26/20 04:00 Nasal Cannula 3.0 11/26/20 03:30 99 20 111/75 (87) 95 11/26/20 03:00 110 32 110/74 (86) 97 11/26/20 02:30 97 17 122/79 (93) 100 11/26/20 02:00 112 23 119/85 (96) 99 11/26/20 01:30 111 30 115/93 (100) 99 11/26/20 01:00 117 20 101/76 (84) 99 11/26/20 00:30 104 20 115/89 (98) 99 11/26/20 00:00 110 11/26/20 00:00 97.8 110 23 109/78 (88) 100 11/26/20 00:00 Nasal Cannula 3.0 11/25/20 23:30 108 21 112/79 (90) 100 HEENT: normal ENT inspection RHYTHM: Afib LUNGS: rales bilaterally CARDIAC: irregularly irregular, systolic murmur - 2/6 holosystolic at apex, rapid rate ABDOMEN: normal bowel sounds, non tender, soft EXTREMITIES: trace edema, pitting edema Laboratory Tests Test 11/26/20 04:00 White Blood Count 7.8 K/UL (4.8-10.8) Red Blood Count 4.55 M/UL (4.70-6.10) L Hemoglobin 14.5 G/DL (14.2-18.0) Hematocrit 44.6 % (42.0-52.0) Mean Corpuscular Volume 98 FL (80-99) Mean Corpuscular Hemoglobin 31.7 PG (27.0-31.0) H Mean Corpuscular Hemoglobin Concent 32.4 G/DL (32.0-36.0) Red Cell Distribution Width 16.8 % (11.6-14.8) H Platelet Count 185 K/UL (150-450) Mean Platelet Volume 9.1 FL (6.5-10.1) Neutrophils (%) (Auto) 56.2 % (45.0-75.0) Lymphocytes (%) (Auto) 28.7 % (20.0-45.0) Monocytes (%) (Auto) 11.5 % (1.0-10.0) H Eosinophils (%) (Auto) 1.7 % (0.0-3.0) Basophils (%) (Auto) 1.9 % (0.0-2.0) Prothrombin Time 15.4 SEC (9.30-11.50) H Prothromb Time International Ratio 1.4 (0.9-1.1) H Activated Partial Thromboplast Time 32 SEC (23-33) Sodium Level 136 MMOL/L (136-145) Potassium Level 4.6 MMOL/L (3.5-5.1) Chloride Level 104 MMOL/L (98-107) Carbon Dioxide Level 20 MMOL/L (21-32) L Anion Gap 12 mmol/L (5-15) Blood Urea Nitrogen 30 mg/dL (7-18) H Creatinine 1.9 MG/DL (0.55-1.30) H Estimat Glomerular Filtration Rate 36.3 mL/min (>60) Glucose Level 104 MG/DL (74-106) Calcium Level 9.4 MG/DL (8.5-10.1) Total Bilirubin 1.6 MG/DL (0.2-1.0) H Direct Bilirubin 0.8 MG/DL (0.0-0.3) H Aspartate Amino Transf (AST/SGOT) 171 U/L (15-37) H Alanine Aminotransferase (ALT/SGPT) 138 U/L (12-78) H Alkaline Phosphatase 73 U/L (46-116) Troponin I 0.951 ng/mL (0.000-0.056) C-Reactive Protein, Quantitative < 0.4 mg/dL (0.00-0.90) Pro-B-Type Natriuretic Peptide 5251 pg/mL (0-125) H Total Protein 6.1 G/DL (6.4-8.2) L Albumin 3.2 G/DL (3.4-5.0) L Globulin 2.9 g/dL Albumin/Globulin Ratio 1.1 (1.0-2.7) Amylase Level 32 U/L (25-115) Lipase 103 U/L (73-393) Assessment/Plan Assessment/Plan PAFib with RVR Acute PR Acute on chronic systolic and diastolic CHF CKD Mitral and aortic regurg S/P Cardiac cath in 09/2020 with non-flow limiting disease Passive congestion of liver due to CHF resulting in elevated LFTs. Orders updated Compliance issues discussed with patient Adriel Roth MD Nov 26, 2020 23:32
[2020-11-27] VITALS: BP 113/77
--- NOTE | 2020-11-27 00:49 | NUR ---
NURSE NOTES: Notified and left a message to Dr. Roth that patient wants sleeping. Awaiting for call back.
[2020-11-27] MEDS ORDERED: LORazepam 0.5mg tab ORAL PRN (01:15)
[2020-11-27] MEDS: Metoprolol Tartrate 50mg tab ORAL SCH (05:05)
--- NOTE | 2020-11-27 05:08 | NUR ---
NURSE NOTES: Held evening metropolol due to low blood pressure. Gave AM metropolol because of the patient's high heart rate in 130s. Will endorse to morning shift.
--- NOTE | 2020-11-27 05:09 | Cardiology Report ---
APPROVED REPORT EXAM: Two-dimensional and M-mode echocardiogram with Doppler and color Doppler. INDICATION Atrial Fibrillation M-Mode DIMENSIONS IVSd1.3 (0.7-1.1cm)Left Atrium (MM)6.7 (1.6-4.0cm) LVDd4.5 (3.5-5.6cm)Aortic Root2.8 (2.0-3.7cm) PWd2.0 (0.7-1.1cm)Aortic Cusp Exc.1.6 (1.5-2.0cm) IVSs1.6 cmEPSS1.5 (>1.0cm) LVDs3.1 (2.5-4.0cm) PWs2.5 cm <Conclusion> Normal left ventricular chamber size. Global left ventricular hypokinesis. Left ventricular ejection fraction estimated to be 30-35 %. No left ventricular hypertrophy. Trivial posterior pericardial effusion. Possible large posterior plural effusion. Severe left atrial enlargement. Right cardiac chamber sizes are within normal limits. Focal aortic valve sclerosis with adequate cusp excursion. Thickened mitral valve leaflets with normal excursion. Mitral annulus and aortic root calcification. Normal pulmonic valve structure. Normal tricuspid valve structure. IVC dilated at 2.9 cm without physiologic collapse suggestive of increased RA pressure. A color flow and spectral Doppler study was performed and revealed: Moderate aortic regurgitation Severe mitral regurgitation. Can not determine left ventricular diastolic function by mitral diastolic velocities due to arrhythmia. Moderate to severe tricuspid regurgitation. Tricuspid systolic velocities suggests peak right ventricular systolic pressure of 57 mmHg, consistent with moderate to severe pulmonary hypertension. Pulmonic regurgitation present.
--- NOTE | 2020-11-27 05:09 | Cardiology Report ---
APPROVED REPORT EKG Measurement Heart [id number] <Conclusion> Supraventricular tachycardia Cannot rule out Anterior infarct, age undetermined Abnormal ECG
[2020-11-27 06:07] LABS: BASOPHILS % (AUTO) 2.2 % (0.0-2.0); EOSINOPHILS % (AUTO) 2.9 % (0.0-3.0); HEMOGLOBIN 14.2 G/DL (14.2-18.0); LYMPHOCYTES % (AUTO) 28.8 % (20.0-45.0); MEAN CORPUSCULAR VOLUME 99 FL (80-99); MONOCYTES % (AUTO) 14.2 % (1.0-10.0); NEUTROPHILS % (AUTO) 51.8 % (45.0-75.0); PLATELET COUNT 165 K/UL (150-450); RED BLOOD COUNT 4.23 M/UL (4.70-6.10); RED CELL DISTRIBUTION WIDTH 17.8 % (11.6-14.8); WHITE BLOOD COUNT 6.6 K/UL (4.8-10.8)
[2020-11-27 06:37] LABS: ALANINE AMINOTRANSFERASE 111 U/L (12-78); ALBUMIN 3.1 G/DL (3.4-5.0); ALBUMIN/GLOBULIN RATIO 1.1 (1.0-2.7); ALKALINE PHOSPHATASE 77 U/L (46-116); ANION GAP 10 mmol/L (5-15); ASPARTATE AMINO TRANSFERASE 82 U/L (15-37); BILIRUBIN,TOTAL 1.2 MG/DL (0.2-1.0); BLOOD UREA NITROGEN 31 mg/dL (7-18); CALCIUM 8.7 MG/DL (8.5-10.1); CARBON DIOXIDE 25 MMOL/L (21-32); CHLORIDE 106 MMOL/L (98-107); CHOLESTEROL 126 MG/DL (< 200); CREATINE KINASE 105 U/L (26-308); CREATININE 1.5 MG/DL (0.55-1.30); GAMMA GLUTAMYL TRANSPEPTIDASE 43 U/L (5-85); HDL CHOLESTEROL 25 MG/DL (40-60); LACTATE DEHYDROGENASE 225 U/L (81-234); PHOSPHORUS 3.8 MG/DL (2.5-4.9); POTASSIUM 3.9 MMOL/L (3.5-5.1); SODIUM 141 MMOL/L (136-145); TRIGLYCERIDES 105 MG/DL (30-150)
[2020-11-27 06:39] LABS: BILIRUBIN,DIRECT 0.6 MG/DL (0.0-0.3)
[2020-11-27] MEDS: Nitroglycerin 2% oint pkt TOPIC SCH (06:41)
--- NOTE | 2020-11-27 07:45 | NUR ---
NURSE HAND-OFF REPORT: Important Events on Shift:[Patient had a heart rate in the 130s. Notified Dr. Nation in person and via phone call. Patient wants to go home, educated the patient the benefits of staying in the hospital. Patient ] Patient Status: [Stable] Diet: [Cardiac diet] Pending Orders: [] Pending Results/Labs:[] Pending MD notification:[] Latest Vital Signs: Temperature 97.7 , Pulse 119 , B/P 114 /76 , Respiratory Rate 22 , O2 SAT 96 , Nasal Cannula, O2 Flow Rate 2.0 . Vital Sign Comment: [] EKG Rhythm: Atrial Fibrillation Rhythm change?: Gilmar WALDROP Notified?: Y -Dr. Nation/Ira WALDROP Response: Latest Crews Fall Score: 45 Fall Risk: High Risk Safety Measures: Call light Within Reach, Bed Alarm Zone 1, Side Rails Side Rails x3, Bed position Low and Locked. Fall Precautions: Yellow Socks Yellow Gown Report given to [BETTY Chin].
--- NOTE | 2020-11-27 07:49 | NUR ---
NURSE NOTES: patient seen in bed in supine position asleep with no acute signs of distress. Patient is on 2L nasal cannula with oxygen saturation within normal limits. Patient is AAOx4 with no complaints of chest pain 0/10. The patients bed is in lowest position, locked, side rails x2 and call light within reach. Patient instructed to press call light for any further needs.
[2020-11-27] MEDS: Aspirin Baby 81mg NG SCH (08:18)
[2020-11-27] MEDS: Eliquis 2.5mg tablet ORAL SCH (08:18)
[2020-11-27 08:19] VITALS: BP 101/71
[2020-11-27] MEDS: Docusate 100mg cap ORAL SCH (08:19)
[2020-11-27] MEDS ORDERED: Lisinopril 10mg tab ORAL SCH (09:00)
--- NOTE | 2020-11-27 09:00 | NUR ---
NURSE NOTES: Patient has left hospital AMA. Patient desired to leave saying, "I just dont want to be here". Patient is AAOx4 and able to make own decisions. Patient given education on risks of leaving hospital AMA, patient condition was explained to patient once again. Patients MD was notified. Patient got dressed took off cardiac rn. IV was discontinued and was clean and intact. Patient is Tongan and Sami speaking. Sami speaking nurse was contacted to talk to patient and reinforce education in Sami. The patient still decided to leave and said' "Im not signing anything" (in regards to AMA form and patient belongings form). Patient left the unit at 0902,walking on his own.
--- NOTE | 2020-11-29 18:29 | History and Physical Report ---
DATE OF ADMISSION: 11/25/2020 REASON FOR ADMISSION: Acute myocardial infarction. HISTORY OF PRESENT ILLNESS: This 60-year-old Spanish male with a known history of ischemic and hypertensive cardiomyopathy. He was recently hospitalized at [facility] and had a full cardiac workup that has been obtained from medical records and reviewed. The patient presented to the hospital today having run out of his medications several days ago. He has had palpitations, chest pain, and shortness of breath for at least two days. In the emergency room, he was noted to have an elevated troponin level and abnormal heart rhythm, and subsequently required transfer to an intensive care unit. PAST MEDICAL HISTORY: Coronary atherosclerosis. His cardiac catheterization last month at [facility] revealed [id number]-[id number] disease. Paroxysmal atrial fibrillation, severe pulmonary hypertension, and degenerative valve disease with mitral and aortic regurgitation. MEDICATIONS: Reviewed from prior records, compliance poor. ALLERGIES: None known. SOCIAL HISTORY: Notable for smoking. Denies substance abuse or alcohol use. REVIEW OF SYSTEMS: He was COVID-19 negative three weeks ago and has not had any known contacts. PHYSICAL EXAMINATION: VITAL SIGNS: Blood pressure 142/100, heart rate 140, respiratory rate 22, afebrile. NECK: Jugular venous pressure elevated. LUNGS: Bilateral rales. CARDIAC: Irregular rhythm, rapid rate. Normal S1, S2. A 2/6 systolic murmur at apex. ABDOMEN: Soft, nontender. EXTREMITIES: 1+ dependent edema. LABORATORY AND DIAGNOSTIC DATA: EKG - atrial fibrillation, rapid ventricular response. Chest x-ray, pulmonary venous congestion and cardiomegaly. Troponin 1.10, repeated 1.11. Sodium 140, potassium 4.5, bicarb 22, BUN 20, creatinine 1.6. Pro-natriuretic peptide 7397. IMPRESSION: 1. Acute myocardial infarction. 2. Diffuse aic-enbf-hzsbqyak coronary artery disease based on recent cardiac catheterization. 3. Valvular cardiomyopathy with severe regurgitation. 4. Pulmonary hypertension. 5. Paroxysmal atrial fibrillation with rapid ventricular response. 6. Medication noncompliance. PLAN: 1. ICU care. 2. IV diltiazem and beta-gricelda for rate control and antianginal benefits. 3. IV nitrates. 4. Diuresis. 5. Full anticoagulation. 6. Serial troponin levels. 7. Condition is critical, prognosis is guarded. Adriel Miguel A Roth DR: MARILY JOB#: [id number] CC:
--- NOTE | 2020-12-01 16:11 | Discharge Summary ---
Discharge Summary Discharge Summary _ Date of admission: 11/25/2019 Patient left AGAINST MEDICAL ADVICE on 11/27/2020 History of Present Illness and Brief Hospital Course Mr. Martin is a 60-year-old male with history of coronary atherosclerosis, paroxysmal atrial fibrillation, severe pulmonary hypertension, mitral/aortic regurgitation, who presented to the ED for evaluation of shortness of breath and palpitation x2 months which had gotten worse since the night prior to presentation. Patient complained of palpitation and chest pressure along with shortness of breath. Patient was reported to test negative for COVID-[address] at [facility] 3 weeks prior to presentation. His EKG was notable for atrial fibrillation without evidence of STEMI. His chest x-ray was notable for signs of CHF. Patient was reported to be admitted to [facility] in September 2020 for the same medical problems. At [facility], patient was diuresed and rate controlled and was discharged home with prescription for Plavix, Eliquis and aspirin. However, it appeared that patient was not compliant with his medications. Patient received Cardizem boluses in the ER for rate control as well as aspirin and Lovenox. Patient was admitted to the hospital for further management. Initially, patient's troponin was elevated but began trending down upon admission. His atrial fibrillation was better with rate controlled. It was noted that patient had cardiac cath in September 2020 with nonflow-limiting disease. The abdominal ultrasound revealed that he had no signs of acute disease in the upper abdomen but bilateral pleural effusions were noted inci dentally. Patient underwent full cardiac work-up at [facility] in September 2020. His ejection fraction was 40% on 2D echocardiogram. He was given Lasix and his renal parameters were monitored. On 11/27/2020, patient was alert and oriented without complaints of chest pain. Patient desired to leave the hospital saying, "I just do not want to be here". Patient was reinforced to stay at the facility for further management in his nondalton language but he still decided to leave AGAINST MEDICAL ADVICE. Consultants: Surgery Dr. Frazier Nephrology Dr. Barbosa Final diagnoses Paroxysmal atrial fibrillation with RVR Acute OR Acute on chronic systolic and diastolic CHF CKD Mitral and aortic regurgitation Status post cardiac cath in September 2020 with nonflow limiting disease Transaminitis Non-STEMI Proteinuria Pleural effusion Pulmonary hypertension Medication noncompliance I have been assigned to dictate discharge summary for this account. I was not involved in the patient's management Bharath Reina Dec 01, 2020 16:11
== END 2020-11-27 08:55 | disposition left against medical advice (07) | DRG 190 ==
LOC: EDBD 23:41 → EMR 11-25 00:07 → 2E 11-25 01:02 → EDBEDREQ 11-25 01:44 → ICU 11-25 05:05 → 2E 11-26 17:41
DX: I21.4 Non-ST elevation (NSTEMI) myocardial infarction (principal); I48.0 Paroxysmal atrial fibrillation; I13.0 Hypertensive heart and chronic kidney disease with heart failure and stage 1 through stage 4 chronic kidney disease, or unspecified chronic kidney disease; N18.9 Chronic kidney disease, unspecified; I50.9 Heart failure, unspecified; I25.10 Atherosclerotic heart disease of native coronary artery without angina pectoris; I27.20 Pulmonary hypertension, unspecified; Z91.14 Patient's other noncompliance with medication regimen; N17.9 Acute kidney failure, unspecified; I34.0 Nonrheumatic mitral (valve) insufficiency; I35.1 Nonrheumatic aortic (valve) insufficiency; I50.43 Acute on chronic combined systolic (congestive) and diastolic (congestive) heart failure
CPT/HCPCS: 36415; 71045; 76700; 80053; 80061; 81003; 82150; 82248; 82550; 82977; 83036; 83615; 83690; 83735; 83880; 84100; 84443; 84484; 84550; 85025; 85379; 85610; 85730; 86140; 93005; 93306; 93970; 96372; 96374; 96375; 96376; 99291